=== PATIENT | female | born 1955 | race Caucasian/White ===

== ENCOUNTER 2022-05-07 21:17 | Emergency (ER) | payer OTHER | END 2022-05-07 23:35 | disposition home or self-care (01) | LOC: FER 21:17 | DX: S61.211A Laceration without foreign body of left index finger without damage to nail, initial encounter (principal); F17.200 Nicotine dependence, unspecified, uncomplicated; W26.0XXA Contact with knife, initial encounter; Y92.009 Unspecified place in unspecified non-institutional (private) residence as the place of occurrence of the external cause; Z28.310 Unvaccinated for COVID-19 ==